=== PATIENT | male | born 1995 | race Two or more races ===

== ENCOUNTER 2023-08-22 05:03 | Emergency (ER) | payer OTHER ==
[~2023-08-22] VITALS: Ht 190.5 cm; Wt 163.3 kg
[2023-08-22] MEDS ORDERED: ACETAMINOPHEN ES 500 MG TABLET PO ONE (05:30)
[2023-08-22] MEDS ORDERED: CYCLOBENZAPRINE 10 MG TABLET PO ONE (05:30)
[2023-08-22] MEDS ORDERED: KETOROLAC TROMETHAMINE INJ 30 MG/ML VIAL IM ONE (05:30)
[2023-08-22] MEDS ORDERED: KETOROLAC TROMETHAMINE INJ 30 MG/ML VIAL ONE (06:27)
[2023-08-22] MEDS ORDERED: CYCLOBENZAPRINE 10 MG TABLET ONE (06:28)
[2023-08-22] MEDS ORDERED: ACETAMINOPHEN ES 500 MG TABLET ONE (06:28)
[2023-08-22 08:44] VITALS: BP 161/115; TEMP 97.8; O2SAT 98
== END 2023-08-22 08:45 | disposition home or self-care (01) ==
LOC: ER 05:05
DX: M25.512 Pain in left shoulder (principal); R07.89 Other chest pain; F17.200 Nicotine dependence, unspecified, uncomplicated; V89.2XXA Person injured in unspecified motor-vehicle accident, traffic, initial encounter; Y93.89 Activity, other specified; Y92.89 Other specified places as the place of occurrence of the external cause; Y99.8 Other external cause status
CPT/HCPCS: 99284; 71045; 96372; 73030; J1885